=== PATIENT | male | born 1935 | race Caucasian/White ===

== ENCOUNTER 2016-06-10 12:49 | Emergency (ER) | payer OTHER ==
[~2016-06-10] VITALS: Ht 172.7 cm; Wt 80.0 kg
[2016-06-10] MEDS ORDERED: TETANUS, DIPHTHERIA, PERTUSSIS VAC/PF 0.5ML (>7YR OLD) IM ONE (13:15)
[2016-06-10] MEDS ORDERED: LIDOCAINE HCL 1% 20ML VIAL (Pyxis) INJ ONE (13:29)
[2016-06-10 14:45] LABS: BASOPHILS % 0.5 % (0.0-2.0); EOSINOPHILS % 0.3 % (0.0-5.0); HEMATOCRIT. 41.6 % (42.0-52.0); HEMOGLOBIN. 13.7 g/dL (14.0-18.0); MEAN CORPUSCULAR HEMOGLOBIN 29.9 pg (28.0-32.0); MEAN CORPUSCULAR HGB CONC 32.8 g/dL (31.0-37.0); MEAN CORPUSCULAR VOLUME 90.9 fL (80.0-94.0); MEAN PLATELET VOLUME 8.5 fl (7.4-10.4); MONOCYTES % 6.1 % (2.0-8.0); NEUTROPHILS % 79.1 % (40.0-76.0); PLATELET 173 x1000/uL (130-400); RED BLOOD CELL COUNT 4.57 mill/uL (4.7-6.1); RED CELL DISTRIBUTION WIDTH 15.6 % (11.6-14.6); WHITE BLOOD COUNT 6.6 x1000/uL (4.5-11.0)
[2016-06-10 14:50] LABS: ALBUMIN 3.8 g/dL (3.4-5.0); CALCIUM 9.2 mg/dL (8.5-10.1); CHLORIDE 107 mEq/L (98-107); INDEX HEMOLYSI 1 (1-3); INDEX ICTERIC 1 (1-4); INDEX LIPEMIC 1 (1-3)
[2016-06-10 14:53] LABS: ALANINE AMINOTRANSFERASE 14 IU/L (13-61); ANION GAP 14; CARBON DIOXIDE 28 mEq/L (21-32); ETHANOL BLOOD < 10 mg/dL; UREA NITROGEN BLOOD 40 mg/dL (7-21)
[2016-06-10 14:56] LABS: eGFR 58 mL/min (>60)
[2016-06-10 15:25] LABS: HEPATITIS B SURFACE AB < 3.1 mIU/mL
[2016-06-10 15:36] LABS: HEPATITIS B SURFACE ANTIGEN NEGATIVE
[2016-06-10 15:49] VITALS: BP 145/75
[2016-06-10 16:04] LABS: HEPATITIS B CORE AB IGM NEGATIVE; HEPATITIS C VIR.AB < 0.02 INDEXVAL (0.00-0.80)
[2016-06-10 16:06] LABS: HEPATITIS A AB IGM NEGATIVE (NEGATIVE)
== END 2016-06-10 17:50 | disposition home or self-care (01) ==
LOC: ER 13:19
DX: S01.111A Laceration without foreign body of right eyelid and periocular area, initial encounter (principal); S09.90XA Unspecified injury of head, initial encounter; I10 Essential (primary) hypertension; W01.0XXA Fall on same level from slipping, tripping and stumbling without subsequent striking against object, initial encounter; Y92.488 Other paved roadways as the place of occurrence of the external cause
CPT/HCPCS: 12013; 36415; 70450; 80053; 85025; 86703; 86706; 90471; 90715; 93005; 99285; G0482; J3490; 86705; 86709; 86803; 87340